=== PATIENT | male | born 1935 | race Caucasian/White ===

== ENCOUNTER 2016-04-08 12:59 | Outpatient (RCR) | payer MEDICARE, BC ==
[~2016-04-08 12:59] MED LIST: ACETAMINOP160 MG/51 ORAL; AMBIEN10 MG ORAL; ASPIRIN81 MG ORAL; CRESTOR10 M2 ORAL; CYMBALTA60 MG ORAL; HUMALOG100 UNIT/4 SUBQ; KLONOPIN1 MG ORAL; LEXAPRO10 MG ORAL; LISINOPRIL20 MG ORAL; MIRTAZAPINE15 MG ORAL; NEURONTIN600 MG ORAL; NORVASC10 MG ORAL; PROSCAR5 MG ORAL
== END 2016-05-04 | disposition home or self-care (01) ==
LOC: PTY 12:59
DX: M40.292 Other kyphosis, cervical region (principal)

== ENCOUNTER 2016-05-03 13:15 | Outpatient (RCR) | payer MEDICARE, BC | END 2016-05-04 | disposition home or self-care (01) | LOC: PTY 13:15 | DX: M43.6 Torticollis (principal) ==

== ENCOUNTER 2016-05-20 13:00 | Outpatient (RCR) | payer MEDICARE, BC | END 2016-06-01 | disposition home or self-care (01) | LOC: PTY 13:00 | DX: M54.2 Cervicalgia (principal) ==

== ENCOUNTER 2016-06-03 13:00 | Outpatient (RCR) | payer MEDICARE, BC ==
--- NOTE | 2016-06-19 23:38 | Reflections ---
DATE: 06/03/2016 LOCATION: [facility]. SUBJECTIVE: The patient is pleasant, calm, cooperative with care, and follows directions. Denies any new complaints. MENTAL STATUS EVALUATION: Oriented to self and situation. Mood is anxious. Affect is appropriate. Thought process is linear. Cognition is intact. Impulse control, insight, and judgment are partially impaired. DIAGNOSIS: Major depression. PLAN: Continue with current management. Continue to monitor symptoms and behavior. Medications reviewed. Chart reviewed. Case discussed with staff. The patient is in a brief supportive psychotherapy. Otherwise, we will continue to monitor the case. Ruben Lee M.D. DR: KALEIGH JOB#: [id number] CC: JOSEPH
== END 2016-07-02 | disposition home or self-care (01) ==
LOC: PTY 13:00
DX: M43.6 Torticollis (principal); Z48.89 Encounter for other specified surgical aftercare
CPT/HCPCS: 97110; G8979; G8980